=== PATIENT | female | born 1950 | race Caucasian/White ===

== ENCOUNTER → 2016-11-29 | Outpatient (CLI) | payer OTHER | LOC: FIMAGING 13:38 | DX: Z12.31 Encounter for screening mammogram for malignant neoplasm of breast (principal); Z80.3 Family history of malignant neoplasm of breast | CPT/HCPCS: G0202 ==

== ENCOUNTER → 2017-08-16 | Outpatient (CLI) | payer OTHER | LOC: FIMAGING 08:22 | PROVIDERS: ATTEND Internal Medicine | DX: K76.89 Other specified diseases of liver (principal); N28.1 Cyst of kidney, acquired ==

== ENCOUNTER → 2017-12-06 | Outpatient (CLI) | payer OTHER | LOC: FIMAGING 07:54 | PROVIDERS: ATTEND Internal Medicine | DX: Z12.31 Encounter for screening mammogram for malignant neoplasm of breast (principal); Z13.820 Encounter for screening for osteoporosis; M81.0 Age-related osteoporosis without current pathological fracture; Z80.3 Family history of malignant neoplasm of breast ==

== ENCOUNTER 2018-06-29 13:04 | Emergency (ER) | payer OTHER ==
--- NOTE | 2018-06-29 13:27 | EDPHY ---
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, nausea, weakness, cassidy gone now, elevated bp now Time Seen by Provider: 06/29/18 13:26 - Medical/Surgical History Hx Asthma: No Hx Chronic Respiratory Disease: No Hx Diabetes: No Hx Cardiac Disease: Yes Hx Renal Disease: No Hx Cirrhosis: No Hx Alcoholism: No Hx HIV/AIDS: No Hx Splenectomy or Spleen Trauma: No Other PMH: facial tumor neuroma - surg removal, hypothyroid, hyperlipidemia, lychens sclerosis, breast biopsy, ovaries removed - Social History Smoking Status: Never smoked Constitutional: Initial Vital Signs Heart Rate 84 06/29/18 13:12 Respiratory Rate 18 06/29/18 13:12 Blood Pressure 166/95 H 06/29/18 13:12 O2 Sat (%) 99 06/29/18 13:12 O2 Delivery Mode Room Air Allergies/Adverse Reactions: amoxicillin trihydrate [From Augmentin] Allergy (Verified 06/29/18 13:19) bacitracin [From Neosporin ([id number])] Allergy (Verified 06/29/18 13:19) bacitracin zinc [From Neosporin ([id number])] Allergy (Verified 06/29/18 13: 19) cephalexin Allergy (Verified 06/29/18 13:19) neomycin sulfate [From Neosporin ([id number])] Allergy (Verified 06/29/18 13: 19) nitrofurantoin macrocrystalline [From Macrodantin] Allergy (Verified 06/29/18 13 :19) Penicillins Allergy (Verified 06/29/18 13:19) polymyxin B [From Neosporin ([id number])] Allergy (Verified 06/29/18 13:19) potassium clavulanate [From Augmentin] Allergy (Verified 06/29/18 13:19) Home Medications: Medication Instructions Recorded Levothyroxine 02/18/16 SIMVASTATIN 02/18/16 Hydrocortisone 0.5% cream (*) 06/29/18 Medical Decision Making - Diagnostics Imaging: Discussed imaging studies w/ plastics scientist Radiologist, I viewed and interpreted images myself ED Course/Re-evaluation: CHIEF COMPLAINT: Headache, nausea, shakiness HISTORY OF PRESENT ILLNESS: The patient is a 67 y/o female with a history of migraines who arrives with her complaining of an intermittent headache, nausea, shakiness, and high blood pressure today. She woke up with a headache around 05:00, about 6.5 hours ago, which is not abnormal for her. This headache persisted for about 3 hours, which was uncommon. Later in the morning while walking with her her headache returned around 10:30, now associated with nausea so she opted to treat it as a possible migraine with Excedrin. Within two hours her headache had resolved, but the nausea remained and she developed lightheadedness and dizziness. She became concerned something was wrong and measured her BP. Upon finding it elevated she became scared and shaky and came to the ED for evaluation. She denies weakness, paresthesias, vision changes, speech difficulty. She also complains of associated chills and notes her complains of similar, but milder symptoms today. She did receive a recent flu vaccination. She is not on an antihypertensive. REVIEW OF SYSTEMS: A comprehensive 10 system review of systems is otherwise negative aside from elements mentioned in the history of present illness and medical decision making. PHYSICAL EXAM: HR, BP, O2 Sat, RR. Temp noted General Appearance: Alert, well hydrated, appropriate, and non-toxic appearing. Head: Atraumatic without scalp tenderness or obvious injury Eyes: Pupils equal, round, reactive to light and accommodation, EOMI, no trauma , no injection. Nose: Atraumatic, no rhinorrhea, clear. Throat: Mucus membranes moist. Neck: Supple, nontender, no lymphadenopathy. Respiratory: No retractions, no distress, no wheezes, and no accessory muscle use. Lungs are clear to auscultation bilaterally. Cardiovascular: Regular rate and rhythm, no murmurs, rubs, or gallops. Good capillary refill all extremities. Gastrointestinal: Abdomen is soft, nontender, non-distended, no masses, no rebound, no guarding, no peritoneal signs. Musculoskeletal: Normal active ROM of all extremities, atraumatic. Neurological: Alert, appropriate, and interactive. The patient has non-focal cranial nerves apart from baseline facial nerve damage, motor, sensory, and cerebellar exam. Skin: No rashes, good turgor, no nodules on palpation. Past medical history: facial nerve damage, hypothyroid, hyperlipidemia, Lichen sclerosus Past surgical history: facial tumor neuroma removal, breast biopsy, oophorectomies Family history: Noncontributory Social history: at bedside. Lives in [place]. Employed. DIAGNOSTICS/PROCEDURES/CRITICAL CARE TIME: Brain MRI: negative DIFFERENTIAL DIAGNOSIS: The differential diagnosis for the patient's headache included but was not limited to subarachnoid hemorrhage, migraine headache, tension headache and infectious causes such as meningitis, pharyngitis and sinusitis. MEDICAL DECISION MAKING: This is a 67 y/o female who presents with a now-resolved headache and persisting nausea, shakiness, and chills. Her exam is unremarkable. She has a nonfocal neuro exam. Suspect infectious cause for her persisting symptoms. No indication for neuro imaging at this time. Plan for IV, labs, UA, flu swab, symptom management. 1L IV NS and 30mg IV Toradol ordered. Patient refused Toradol. Labs are unremarkable. UA normal. Flu swab normal. 1516: Reassessed patient and discussed findings. I've found no concerning causes for her symptoms today. Suspect viral syndrome. She is feeling improved. She does mention that she would like to know what caused the shaking earlier and notes it was primarily on her right side. She had no weakness, paresthesias , confusion, speech difficulty, vision changes, or any other neurologic symptoms. Discussed pursing MRI for further evaluation of this, though she has generally low pre-test probability of finding something concerning. I suspect viral syndrome is a more likely cause for her symptoms, but she does have a increased twitch on the left side of her face and is also concerned about a recurrent neuroma. We discussed risks and benefits and she has opted to pursue imaging tonight. Troponin is negative. Brain MRI is negative. Reassessed patient and discussed findings. She is feeling reading to go home. Recommended standard care and follow up instructions. Return precautions discussed. She is comfortable with this plan. - Data Points Laboratory Results: Laboratory Results 06/29/18 13:44 06/29/18 13:44 06/29/18 06/29/18 06/29/18 15:38 14:12 13:44 WBC RBC Hgb Hct MCV MCH MCHC RDW Plt Count MPV Neut % (Auto) Lymph % (Auto) [place] % (Auto) Eos % (Auto) Baso % (Auto) Nucleat RBC Rel Count Absolute Neuts (auto) Absolute Lymphs (auto) Absolute Monos (auto) Absolute Eos (auto) Absolute Basos (auto) Absolute Nucleated RBC Immature Gran % Immature Gran # Sodium 136 mEq/L mEq/L (135-145) Potassium 3.9 mEq/L mEq/L (3.3-5.0) Chloride 99 mEq/L mEq/L (97-110) Carbon Dioxide 25 mEq/l mEq/l (22-31) Anion Gap 12 mEq/L mEq/L (6-14) BUN 19 mg/dL mg/dL (7-23) Creatinine 0.7 mg/dL mg/dL (0.6-1.0) Estimated GFR > 60 Glucose 129 mg/dL H mg/dL (70-100) Calcium 10.2 mg/dL mg/dL (8.5-10.4) POC Troponin I 0.00 ng/mL ng/mL (0.00-0.08) Urine Color YELLOW Urine Appearance HAZY Urine pH 6.0 (5.0-7.5) Ur Specific [place] 1.008 (1.002-1.030) Urine Protein NEGATIVE (NEGATIVE) Urine Ketones NEGATIVE (NEGATIVE) Urine Blood NEGATIVE (NEGATIVE) Urine Nitrate NEGATIVE (NEGATIVE) Urine Bilirubin NEGATIVE (NEGATIVE) Urine Urobilinogen NEGATIVE EU EU (0.2-1.0) Ur Leukocyte Esterase NEGATIVE (NEGATIVE) Urine RBC 1-3 /hpf /hpf (0-3) Urine WBC 1-3 /hpf /hpf (0-3) Ur Epithelial Cells NONE SEEN /lpf /lpf (NONE-1+) Urine Mucus TRACE /lpf /lpf (NONE-1+) Urine Glucose NEGATIVE (NEGATIVE) Nasal Influenza A PCR Nasal Influenza B PCR 06/29/18 06/29/18 13:44 13:30 WBC 9.30 10^3/uL 10^3/uL (3.80-9.50) RBC 5.18 10^6/uL 10^6/uL (4.18-5.33) Hgb 15.5 g/dL g/dL (12.6-16.3) Hct 45.3 % % (38.0-47.0) MCV 87.5 fL fL (81.5-99.8) MCH 29.9 pg pg (27.9-34.1) MCHC 34.2 g/dL g/dL (32.4-36.7) RDW 12.0 % % (11.5-15.2) Plt Count 194 10^3/uL 10^3/uL (150-400) MPV 11.7 fL fL (8.7-11.7) Neut % (Auto) 73.9 % % (39.3-74.2) Lymph % (Auto) 19.4 % % (15.0-45.0) [place] % (Auto) 5.4 % % (4.5-13.0) Eos % (Auto) 0.3 % L % (0.6-7.6) Baso % (Auto) 0.5 % % (0.3-1.7) Nucleat RBC Rel Count 0.0 % % (0.0-0.2) Absolute Neuts (auto) 6.87 10^3/uL H 10^3/uL (1.70-6.50) Absolute Lymphs (auto) 1.80 10^3/uL 10^3/uL (1.00-3.00) Absolute Monos (auto) 0.50 10^3/uL 10^3/uL (0.30-0.80) Absolute Eos (auto) 0.03 10^3/uL 10^3/uL (0.03-0.40) Absolute Basos (auto) 0.05 10^3/uL 10^3/uL (0.02-0.10) Absolute Nucleated RBC 0.00 10^3/uL 10^3/uL (0-0.01) Immature Gran % 0.5 % % (0.0-1.1) Immature Gran # 0.05 10^3/uL 10^3/uL (0.00-0.10) Sodium Potassium Chloride Carbon Dioxide Anion Gap BUN Creatinine Estimated GFR Glucose Calcium POC Troponin I Urine Color Urine Appearance Urine pH Ur Specific [place] Urine Protein Urine Ketones Urine Blood Urine Nitrate Urine Bilirubin Urine Urobilinogen Ur Leukocyte Esterase Urine RBC Urine WBC Ur Epithelial Cells Urine Mucus Urine Glucose Nasal Influenza A PCR NEGATIVE FOR FLU A (NEGATIVE) Nasal Influenza B PCR NEGATIVE FOR FLU B (NEGATIVE) Medications Given: Discontinued Medications Sodium Chloride (Ns) 1,000 mls @ 0 mls/hr IV EDNOW ONE; Wide Open PRN Reason: Protocol Stop: 06/29/18 13:34 Last Admin: 06/29/18 13:49 Dose: 1,000 mls Ketorolac Tromethamine (Toradol) 30 mg IVP EDNOW ONE Stop: 06/29/18 13:34 Last Admin: 06/29/18 13:50 Dose: Not Given Point of Care Test Results: Chemistry 06/29/18 15:38 POC Troponin I 0.00 ng/mL ng/mL (0.00-0.08) Departure - Departure Disposition: Home, Routine, Self-Care Clinical Impression: Nausea, Shakiness, Viral syndrome Headache Qualifiers: Headache type: unspecified Headache chronicity pattern: acute headache Intractability: not intractable Qualified Code(s): R51 - Headache Condition: Good Instructions: Acute Headache (ED), Viral Syndrome (ED) Additional Instructions: 1. Use Tylenol and ibuprofen as needed for cold and fever symptoms over the next few days. 2. Follow up with your primary care provider as needed for unimproved symptoms. 3. Return to the ED for any worsening of condition. Referrals: Milagro Peña MD [Primary Care Provider] - As per Instructions Report Scribed for: Jean-Paul Spivey Report Scribed by: Cherri Maya Date of Report: 06/29/18 Time of Report: 14:33
[2018-06-29] MEDS ORDERED: KETOROLAC 30 MG/1 ML SDV IVP ONE (13:33)
[2018-06-29] MEDS ORDERED: NS 1,000 ML IV ONE (13:33)
[2018-06-29 14:06] LABS: PLATELET COUNT 194 10^3/uL (150-400)
[2018-06-29] MEDS ORDERED: GADOBUTROL 10 ML VIAL IVP ONE (15:52)
[2018-06-29 16:34] VITALS: BP 138/85
== END 2018-06-29 16:36 | disposition home or self-care (01) ==
DX: B34.9 Viral infection, unspecified (principal); R11.0 Nausea; R51 Headache; E86.9 Volume depletion, unspecified
CPT/HCPCS: 70553; 96360; 99285; A9585; J1885; 84484-PO

== ENCOUNTER → 2018-12-24 | Outpatient (CLI) | payer OTHER | LOC: FIMAGING 14:40 | PROVIDERS: ATTEND Internal Medicine | DX: Z12.31 Encounter for screening mammogram for malignant neoplasm of breast (principal); Z80.3 Family history of malignant neoplasm of breast ==